=== PATIENT | male | born 1990 | race Caucasian/White ===

== ENCOUNTER 2024-11-17 18:40 | Emergency (ER) | payer OTHER, SELFPAY ==
[2024-11-17 18:46] VITALS: BP 142/95; PULSE 64; RESP 18; TEMP 36.6; O2SAT 100; BMI 30.5
[2024-11-17] MEDS: ONDANSETRON 4 MG ODT SL (19:00)
--- NOTE | 2024-11-17 20:19 | EKG_ITS ---
[place] [id number] [place] [id number] Test Date: 2024-11-17 Pat Name: Souleymane Valentine Department: [facility] Room: Gender: Male Bo[place]inder: : 1990 Requested By: Order Number: [id number] Reading MD: Mason Shaikh Measurements Intervals [place] Rate: 65 P: 61 NH: 200 QRS: 13 QRSD: 118 T: 6 QT: 422 QTc: 438 Interpretive Statements Normal sinus rhythm Left ventricular hypertrophy with QRS widening ( Sokolow-Dillon , Sharad product ) Electronically Signed On 11-18-2024 18:42:47 PDT by Mason Shaikh
[2024-11-17] MEDS: diphenhydrAMINE 50 MG/ML VIAL IV (20:30)
[2024-11-17] MEDS: METOCLOPRAMIDE 10 MG/2 ML INJ IV (20:30)
--- NOTE | 2024-11-17 20:33 | DI.CT.S_ITS ---
PROCEDURE: CT HEAD/BRAIN WO CON INDICATIONS: dizziness/vomiting TECHNIQUE: Noncontrast 4.5 mm thick angled axial sections acquired from the foramen magnum to the vertex, with coronal and sagittal reformats. For radiation dose reduction, the following was used: automated exposure control, adjustment of mA and/or kV according to patient size. COMPARISON: None. FINDINGS: Image quality: Diagnostic. CSF spaces: Basal cisterns are patent. No extra-axial fluid collections. Ventricles are normal in size and shape. Brain: No midline shift. No intracranial masses or hemorrhage. Ramirez-white matter interface is normal. Skull and face: Calvarium and visualized facial bones are intact, without suspicious lesions. Sinuses: Visualized sinuses and mastoids are clear. IMPRESSION: No CT evidence of acute intracranial process. Dictated by: Anni Jasso M.D. on 11/17/2024 at 21:23 Approved by: Anni Jasso M.D. on 11/17/2024 at 21:26
[2024-11-17 20:47] LABS: Add Manual Diff / Slide Review NO; Basophils Absolute Auto 0 /uL (0-100); Basophils Percent Auto 0.3 % (0-2); Eosinophils Absolute Auto 0 /uL (0-450); Eosinophils Percent Auto 0.3 % (2-4); Hematocrit 45.8 % (41-53); Hemoglobin 15.5 g/dL (13.5-17.5); INR 1.2 (0.9-1.3); Lymphocytes Absolute Auto 1000 /uL (1100-4500); Lymphocytes Percent Auto 9.4 % (25-40); Mean Corpuscular HGB Conc 33.7 % (30-36); Mean Corpuscular Hemoglobin 30.6 PG (26-34); Mean Corpuscular Volume 90.8 fL (80-100); Monocytes Absolute Auto 300 /uL (0-900); Monocytes Percent Auto 2.9 % (3-14); Neutrophils Absolute Auto 9500 /uL (1500-7000); Neutrophils Percent Auto 87.1 % (50-75); Platelet Count 223 X10^3/uL (150-400); Prothrombin Time 13.3 SECONDS (9.4-12.5); Red Blood Cell Count 5.04 X10^6/uL (4.5-5.9); Red Cell Distribution Width 13.3 % (11.6-14.8); White Blood Cell Count 10.9 X10^3/uL (4.5-11.0)
[2024-11-17 20:49] LABS: PTT Partial Thromboplastin Tim 29 SECONDS (25.1-36.5)
[2024-11-17 20:51] LABS: Alanine Aminotransferase 37 IU/L (<50); Albumin 4.7 g/dL (3.5-5.0); Albumin Globulin Ratio 1.5 (1.0-2.8); Alkaline Phosphatase 41 U/L (38-126); Aspartate Aminotransferase 34 IU/L (17-59); BUN Creatinine Ratio 14.7 (6-22); Bilirubin Total 0.4 mg/dL (0.2-1.3); Blood Urea Nitrogen 14 mg/dL (9-20); Calcium 9.8 mg/dL (8.4-10.2); Carbon Dioxide 26 mmol/L (22-32); Chloride 100 mmol/L (98-107); Creatine Kinase 236 U/L (55-170); Estimated Glomerular Filt Rate > 60 mL/min (>60); Globulin 3.1 g/dL (1.7-4.1); Glucose 141 mg/dL (70-100); HEMOLYSIS < 15 (0-50); Lipase 91 U/L (23-300); Magnesium 1.8 mg/dL (1.6-2.3); Potassium 3.6 mmol/L (3.4-5.1); Sodium 139 mmol/L (137-145); Total Protein 7.8 g/dL (6.3-8.2)
[2024-11-17 21:02] LABS: NT-proBNP (BNP-Adult 18+) < 20 pg/mL (<125); Troponin I < 0.012 ng/mL (0.01-0.034)
--- NOTE | 2024-11-17 21:59 | ED.DIZZY ---
HPI - Dizziness General Chief Complaint: Dizziness Stated Complaint: vertigo, nausea, vomiting Time Seen by Provider: 11/17/24 21:58 History of Present Illness HPI Narrative: 34-year-old male without any significant past medical history comes into the ED from home for evaluation of vertiginous like symptoms. He states that about an hour and a half ago he was laying down like in his bone started feeling like the room was spinning. He had some nausea vomiting but denied any chest pain shortness breath fever chills or any other GI/ symptoms time. States that he only feels slightly nauseous but did have an episode of dizziness during his stay here in the emergency department upon waiting. On exam patient NIH of 0 no focal deficits he denies any head strike denies any headache visual disturbances chest pain shortness breath fever chills abdominal pain or any other GI/ symptoms time. Related Data Previous Rx's Medication Instructions Recorded meclizine 25 mg tablet 25 mg PO BID PRN dizziness 1 week 11/17/24 #14 tabs Allergies Allergy/AdvReac Type Severity Reaction Status Date / Time No Known Drug Allergies Allergy Verified 11/17/24 18:46 Review of Systems Review of Systems Narrative: General: Denies fever, chills, weight loss HEENT: Denies headache, eye drainage, eye irritation, head trauma, sore throat, voice change Cardiovascular: Denies any chest pain, palpitations, tachycardia Respiratory: Denies any shortness of breath, cough, wheeze, stridor GI/: Denies any abdominal pain, nausea, vomiting, diarrhea, bright red blood per rectum, melanotic stools, urinary frequency, urinary retention, dysuria, hematuria MSK: Denies any joint pain, muscle pains, swelling Skin: Denies any rashes, lesions, discoloration Neuro: Positive dizziness Denies any headache, lightheadedness, fainting, weakness Psych: Denies SI/HI Patient History Social History Smoking Status: Never smoker Smoking Status: Never smoker Exam Narrative Exam Narrative: General: Cooperative, well-developed, not in acute distress HEENT: Normocephalic, atraumatic, PERRLA, normal sclera, eyelids normal Neck: Active full range of motion, atraumatic Chest: Normal to inspection, negative crepitus, no overlying erythema ecchymosis Respiratory: Normal respiratory effort, not in acute respiratory distress, clear to auscultation bilaterally negative cough, wheeze, tachypnea, rhonchi, rales Cardiology: Regular rate rhythm negative gallop, murmur, rubs GI/: No tenderness to palpation, soft, non rigid, normal to inspection, exam deferred MSK: Full active range of motion in all 4 extremities, atraumatic, no tenderness to palpation of any bony prominences Skin: No rashes or lesions noted Neuro: NIH of 0, Alert awake oriented x3, moves all 4 extremities spontaneously, cranial nerves intact, able to answer all questions appropriately follows commands appropriately Psych: Cooperative, negative suicidal or homicidal ideations Initial Vital Signs Initial Vital Signs: Vital Signs Temperature 98 F 11/17/24 18:46 Pulse Rate 64 11/17/24 18:46 Respiratory Rate 18 11/17/24 18:46 Blood Pressure 142/95 H 11/17/24 18:46 Pulse Oximetry 100 11/17/24 18:46 Oxygen Delivery Method Room Air 11/17/24 18:46 Course Orders Ordered: ED Orders 11/17/24 20:16 EKG-12 Lead Stat 11/17/24 20:25 Complete Blood Count AUTO DIFF Stat Comprehensive Metabolic Panel Stat Lipase Stat Magnesium Stat NT-proBNP (BNP-Adult 18+) Stat PTT Partial Thromboplastin Emerson Stat Prothrombin Time INR Stat Troponin & CK Cardiac Panel Stat 11/17/24 20:33 CT head/brain wo con Stat Ondansetron HCl (Ondansetron 4 Mg/2 Ml Inj) 4 mg IV NOW PRN PRN Reason: Nausea And Vomiting Ondansetron HCl (Ondansetron 4 Mg Odt) 4 mg SL NOW PRN PRN Reason: Nausea And Vomiting Last Admin: 11/17/24 19:00 Dose: 4 mg Documented By: PAULA Discontinued Medications Diphenhydramine HCl (Diphenhydramine 50 Mg/Ml Vial) 50 mg IV NOW ONE Stop: 11/17/24 20:18 Last Admin: 11/17/24 20:30 Dose: 50 mg Documented By: MARK Metoclopramide HCl (Metoclopramide 10 Mg/2 Ml Inj) 10 mg IV NOW ONE Stop: 11/17/24 20:18 Last Admin: 11/17/24 20:30 Dose: 10 mg Documented By: MARK Vital Signs Vital signs: Vital Signs - 8 hr 11/17/24 18:46 Temperature 98 F Pulse Rate 64 Respiratory Rate 18 Blood Pressure 142/95 H Pulse Oximetry 100 Oxygen Delivery Method Room Air MDM - Dizziness Differential Diagnosis Differential diagnosis: Likely benign paroxysmal positional vertigo and other (ACS, pneumonia, electrolyte abnormality, CVA) Lab Data 11/17/24 20:25 11/17/24 20:25 Labs: Lab Results 11/17/24 Range/Units 20:25 WBC 10.9 (4.5-11.0) X10^3/uL RBC 5.04 (4.5-5.9) X10^6/uL Hgb 15.5 (13.5-17.5) g/dL Hct 45.8 (41-53) % MCV 90.8 (80-100) fL MCH 30.6 (26-34) PG MCHC 33.7 (30-36) % RDW 13.3 (11.6-14.8) % Plt Count 223 (150-400) X10^3/uL Neut % (Auto) 87.1 H (50-75) % Lymph % (Auto) 9.4 L (25-40) % [place] % (Auto) 2.9 L (3-14) % Eos % (Auto) 0.3 L (2-4) % Baso % (Auto) 0.3 (0-2) % Neut # (Auto) 9500 H (2752-0997) /uL Lymph # (Auto) 1000 L (2596-1496) /uL [place] # (Auto) 300 (0-900) /uL Eos # (Auto) 0 (0-450) /uL Baso # (Auto) 0 (0-100) /uL PT 13.3 H (9.4-12.5) SECONDS INR 1.2 (0.9-1.3) APTT 29 (25.1-36.5) SECONDS Sodium 139 (137-145) mmol/L Potassium 3.6 (3.4-5.1) mmol/L Chloride 100 (98-107) mmol/L Carbon Dioxide 26 (22-32) mmol/L BUN 14 (9-20) mg/dL Creatinine 0.95 (0.66-1.25) mg/dL Estimated GFR > 60 (>60) mL/min BUN/Creatinine Ratio 14.7 (6-22) Glucose 141 H (70-100) mg/dL Calcium 9.8 (8.4-10.2) mg/dL Magnesium 1.8 (1.6-2.3) mg/dL Total Bilirubin 0.4 (0.2-1.3) mg/dL AST 34 (17-59) IU/L ALT 37 (<50) IU/L Alkaline Phosphatase 41 (38-126) U/L Total Creatine Kinase 236 H (55-170) U/L Troponin I < 0.012 (0.01-0.034) ng/mL NT-Pro-B Natriuret Pep < 20 (<125) pg/mL Total Protein 7.8 (6.3-8.2) g/dL Albumin 4.7 (3.5-5.0) g/dL Globulin 3.1 (1.7-4.1) g/dL Albumin/Globulin Ratio 1.5 (1.0-2.8) Lipase 91 (23-300) U/L Imaging Data CT scan - head: Radiologist's Impression: [place] [address] CT Scan Report Signed Patient: Souleymane Valentine MR#: [id number] : 1990 Acct:[id number] Age/Sex: 34 / M Date of Service: 11/17/24 Loc: ED Accession Number: [id number] Procedure: CT head/brain wo con Ordering Provider: Mason oCburn D.O. PROCEDURE: CT HEAD/BRAIN WO CON INDICATIONS: dizziness/vomiting TECHNIQUE: Noncontrast 4.5 mm thick angled axial sections acquired from the foramen magnum to the vertex, with coronal and sagittal reformats. For radiation dose reduction, the following was used: automated exposure control, adjustment of mA and/or kV according to patient size. COMPARISON: None. FINDINGS: Image quality: Diagnostic. CSF spaces: Basal cisterns are patent. No extra-axial fluid collections. Ventricles are normal in size and shape. Brain: No midline shift. No intracranial masses or hemorrhage. Ramirez-white matter interface is normal. Skull and face: Calvarium and visualized facial bones are intact, without suspicious lesions. Sinuses: Visualized sinuses and mastoids are clear. IMPRESSION: No CT evidence of acute intracranial process. ECG Data Interpretation: EKG interpreted ED physician sinuses 5 beats per minute QTC 438 left axis deviation nonspecific ST changes no STEMI MDM Narrative Medical decision making narrative: 34-year-old male without any significant past medical history presenting for vertiginous like symptoms started about 2 hours prior to arrival. Denied any trauma or falls, denies any visual disturbances. On exam patient NIH of 0 no focal deficits, symptoms had resolved after administration of Reglan and Benadryl, patient had EKG without any ischemic changes troponin negative CT scan without any acute findings, lab work unremarkable. Symptoms more likely peripheral in nature, patient will be sent home with symptomatic relief with meclizine, he was given strict return precautions he verbalized understanding of this and agrees to being discharged home with outpatient follow up Discharge Plan Departure Patient Disposition: Home Clinical Impression: Vertigo Instructions: DI for Vertigo Activity Restrictions/Additional Instructions: Please follow up with primary care and otolaryngology in outpatient setting Please read the discharge instructions sheet carefully and bring all papers to all doctor follow-up visits, as it may contain information that your doctor may want to see. Disease processes change and evolve, if your symptoms worsen or if you develop any new symptoms that are concerning to you please return for evaluation. Your evaluation today does not show any evidence of any life-threatening/serious illnesses requiring admission to the hospital or surgery. Please follow-up with your doctor for re-evaluation in approximately 1 day. Seek immediate medical attention for any worrisome symptoms. *If you do not have a primary care provider please contact the [facility] Resource line at [phone]. They will ask some questions about your medical history and help get you set up with a doctor in the community. Prescriptions: New meclizine 25 mg tablet 25 mg PO BID PRN (Reason: dizziness) 7 Days Qty: 14 0RF Referrals: Orly Martinez ND [Primary Care Provider] - Stand Alone Forms: Patient Portal/API/Survey
[2024-11-17] MEDS: ONDANSETRON 4 MG ODT PREPACK 1 BOTTLE MISC (22:23)
[2024-11-17 22:31] VITALS: BP 126/80; PULSE 70; RESP 16; O2SAT 96
== END 2024-11-17 22:34 | disposition home or self-care (01) ==
PROVIDERS: Emergency Provider Student in an Organized Health Care Education/Training Program; PCP Naturopath
DX: R42 Dizziness and giddiness (principal); R11.0 Nausea
CPT/HCPCS: 36415; 70450; 80053; 82550; 83690; 83735; 83880; 84484; 85025; 85610; 85730; 93005; 96374; 96375; 99284; J1200; J2765